=== PATIENT | male | born 1970 | race Hispanic/Latino ===

== ENCOUNTER 2016-04-20 09:09 | Emergency (ER) | payer OTHER ==
[2016-04-20 09:26] VITALS: BP 139/101
[2016-04-20 09:51] LABS: Basophils % (Auto) 1.1 % (0.0-1.8); Eosinophils % (Auto) 2.5 % (0.0-4.3); Hematocrit 44.9 % (35.5-45.6); Hemoglobin 15.1 gm/dl (11.8-15.2); Mean Corpuscular HGB Conc 34 % (32-34); Mean Corpuscular Hemoglobin 30 pg (28-32); Mean Corpuscular Volume 88 fl (84-94); Platelet Count 278 K/mm3 (140-440); Red Blood Count 5.09 M/mm3 (3.65-5.03); Red Cell Distribution Width 13.1 % (13.2-15.2); White Blood Count 5.8 K/mm3 (4.5-11.0)
[2016-04-20 10:02] LABS: Anion Gap 17 mmol/L; Blood Urea Nitrogen 7 mg/dL (9-20); Carbon Dioxide 29 mmol/L (22-30); Chloride 100.7 mmol/L (98-107); Glucose 100 mg/dL (75-100); Potassium 5.2 mmol/L (3.6-5.0); Sodium 141 mmol/L (137-145)
--- NOTE | 2016-04-21 00:19 | ED Elopement Review ---
ED Pt Elopement review - Results review Lab results: Laboratory Tests 04/20/16 04/20/16 04/20/16 09:42 09:42 13:34 WBC 5.8 RBC 5.09 H Hgb 15.1 Hct 44.9 MCV 88 MCH 30 MCHC 34 RDW 13.1 L Plt Count 278 Lymph % (Auto) 27.4 Henry % (Auto) 6.4 Eos % (Auto) 2.5 Baso % (Auto) 1.1 Lymph # 1.6 Henry # 0.4 Eos # 0.1 Baso # 0.1 Seg Neutrophils % 62.6 Seg Neutrophils # 3.6 Sodium 141 Potassium 5.2 H Chloride 100.7 Carbon Dioxide 29 Anion Gap 17 BUN 7 L Creatinine 1.0 Estimated GFR > 60 BUN/Creatinine Ratio 7.00 Glucose 100 Calcium 10.0 Troponin T < 0.010 < 0.010 04/20/16 15:25 WBC RBC Hgb Hct MCV MCH MCHC RDW Plt Count Lymph % (Auto) Henry % (Auto) Eos % (Auto) Baso % (Auto) Lymph # Henry # Eos # Baso # Seg Neutrophils % Seg Neutrophils # Sodium Potassium Chloride Carbon Dioxide Anion Gap BUN Creatinine Estimated GFR BUN/Creatinine Ratio Glucose Calcium Troponin T < 0.010 - Call Back decision Pt Call Back Decision: No action required
== END 2016-04-20 09:45 | disposition left against medical advice (07) ==
LOC: ED 09:09
DX: R07.89 Other chest pain (principal); Z53.21 Procedure and treatment not carried out due to patient leaving prior to being seen by health care provider
CPT/HCPCS: 36415; 80048; 84484; 85025; 93005; 93010

== ENCOUNTER 2016-04-20 19:28 | Inpatient (IN) | payer OTHER ==
--- NOTE | 2016-04-21 08:48 | Emergency Department Report ---
ED Chest Pain HPI - General Chief Complaint: Chest Pain Stated Complaint: CHEST PAIN, HIGH BLOOD PRESSURE Time Seen by Provider: 04/21/16 08:37 Source: patient Mode of arrival: Ambulatory Limitations: No Limitations - History of Present Illness Initial Comments: This is a 46-year-old male who presents to the emergency department with complaint of dizziness and left-sided chest pain that has been going on intermittently over the past 3 days. The patient has been in the emergency department since [place] yesterday, Wednesday, when he came by EMS from home. The dizziness worsened at that time and feels like he might pass out but he denies any vertigo-like symptoms. He also says that sometimes the pain will radiate down his left arm causing some paresthesia-like symptoms. He denies any history of IN, CVA, PE/DVT. He does have a history of hypertension, tobacco use and there is a family history of heart problems with his father having a heart attack at the age of 37 years of age. He has not taken anything for symptoms prior to presentation. He denies any illicit drug use or excessive alcohol use. No recent travel or sick contacts at home. 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 Severity scale (0 -10): 9 - Related Data Home Medications Medication Instructions Recorded Confirmed Last Taken Lansoprazole [Prevacid] 30 mg PO QDAY 04/21/16 04/21/16 Unknown Allergies Allergy/AdvReac Type Severity Reaction Status Date / Time No Known Allergies Allergy Verified 05/06/14 10:32 ELBA score - Elba Score Age > 65: (0) No Aspirin use within the Past 7 Days: (0) No 3 or more CAD Risk Factors: (1) Yes 2 or more Angina events in past 24 hrs: (1) Yes Known CAD with more than 50% Stenosis: (0) No Elevated Cardiac Markers: (0) No ST Deviation Greater than 0.5mm: (0) No ELBA Score: 2 ED Review of Systems ROS: Stated complaint: CHEST PAIN, HIGH BLOOD PRESSURE Other details as noted in HPI Comment: All other systems reviewed and negative Constitutional: denies: chills, fever Eyes: denies: eye pain, eye discharge, vision change ENT: denies: ear pain, throat pain Respiratory: denies: cough, shortness of breath, wheezing Cardiovascular: chest pain. denies: palpitations Gastrointestinal: denies: abdominal pain, nausea, diarrhea Genitourinary: denies: urgency, dysuria Musculoskeletal: denies: back pain, joint swelling, arthralgia Skin: denies: rash, lesions Neurological: headache, other (Dizzy). denies: weakness, paresthesias ED Past Medical Hx - Past Medical History Hx Hypertension: Yes (No medication) Hx Heart Attack/AMI: No Hx Congestive Heart Failure: No Hx Diabetes: No Hx GERD: Yes Hx Arthritis: Yes Hx Kidney Stones: Yes Hx Asthma: No Hx COPD: No - Surgical History Additional Surgical History: left eye surgery as a child - Social History Smoking Status: Current Every Day Smoker Substance Use Type: None - Medications Home Medications: Home Medications Medication Instructions Recorded Confirmed Last Taken Type Lansoprazole [Prevacid] 30 mg PO QDAY 04/21/16 04/21/16 Unknown History ED Physical Exam - General Limitations: No Limitations - Other Other exam information: GENERAL: The patient is well-developed well-nourished. HEENT: Normocephalic. Atraumatic. Extraocular motions are intact. Patient has moist mucous membranes. Pupils equal reactive to light bilaterally. NECK: Supple. Trachea is midline. CHEST/LUNGS: Clear to auscultation. There is no respiratory distress noted. Chest pain is not reproducible to palpation of chest wall. HEART/CARDIOVASCULAR: Regular. There is no tachycardia. There is no gallop rub or murmur. ABDOMEN: Abdomen is soft, nontender. Patient has normal bowel sounds. There is no abdominal distention. SKIN: There is no rash. There is no edema. There is no diaphoresis. NEURO: The patient is awake, alert, and oriented. The patient is cooperative. The patient has no focal neurologic deficits. The patient has normal speech. MUSCULOSKELETAL: There is no tenderness or deformity. There is no limitation range of motion. There is no evidence of acute injury. ED Course Vital Signs 04/20/16 04/21/16 04/21/16 20:45 06:21 08:34 Temperature 98.5 F 98.1 F Pulse Rate 80 78 Respiratory 18 20 Rate Blood Pressure 155/97 131/96 Blood Pressure [Right] O2 Sat by Pulse 100 100 100 Oximetry 04/21/16 04/21/16 04/21/16 08:40 08:43 08:50 Temperature Pulse Rate 75 85 69 Respiratory 16 11 L 18 Rate Blood Pressure Blood Pressure 131/86 [Right] O2 Sat by Pulse 99 99 99 Oximetry 04/21/16 04/21/16 04/21/16 09:00 09:10 09:20 Temperature Pulse Rate 66 64 62 Respiratory 17 15 15 Rate Blood Pressure 131/82 131/82 131/86 Blood Pressure [Right] O2 Sat by Pulse 98 97 98 Oximetry 04/21/16 04/21/16 04/21/16 09:30 09:40 09:50 Temperature Pulse Rate 60 59 L 61 Respiratory 12 12 12 Rate Blood Pressure 120/81 120/81 123/78 Blood Pressure [Right] O2 Sat by Pulse 97 98 98 Oximetry 04/21/16 04/21/16 04/21/16 10:00 10:10 10:20 Temperature Pulse Rate 65 Respiratory 11 L Rate Blood Pressure 128/85 128/85 110/60 Blood Pressure [Right] O2 Sat by Pulse 98 98 98 Oximetry 04/21/16 04/21/16 04/21/16 10:30 10:40 10:50 Temperature Pulse Rate Respiratory Rate Blood Pressure 126/80 126/80 119/79 Blood Pressure [Right] O2 Sat by Pulse 99 98 97 Oximetry 04/21/16 11:00 Temperature Pulse Rate Respiratory Rate Blood Pressure 114/83 Blood Pressure [Right] O2 Sat by Pulse 99 Oximetry ED Medical Decision Making - Lab Data Result diagrams: 04/21/16 09:00 - EKG Data -: EKG Interpreted by Me EKG shows normal: sinus rhythm, axis, intervals, QRS complexes, ST-T waves Rate: normal - EKG Data When compared to previous EKG there are: previous EKG unavailable Interpretation: normal EKG - Radiology Data Radiology results: image reviewed interpreted by me: Chest x-ray did not show any acute process. Heart is normal shape and size. No effusions. No pneumothorax. No signs of pneumonia seen. - Medical Decision Making 46-year-old male presents to the emergency department with complaint of some intermittent left-sided chest pain with some radiation down the left arm. He has the risk factors of hypertension, tobacco abuse, and family history. He has never had a stress test. Patient has 2 different encounters in the past 24 hours but has never left the emergency department and therefore has 2 different sets of labs and EKGs and imaging. So far the labs have been unremarkable but the patient continues to have discomfort. Vital signs stable throughout his ED course. Patient will be admitted to hospital for either a stress test or cardio consultation and has been accepted for admission by the hospitalist, Dr. Orosco. - Differential Diagnosis IN, costochondritis, pneumonia, CHF Critical Care Time: No Critical care attestation.: If time is entered above; I have spent that time in minutes in the direct care of this critically ill patient, excluding procedure time. ED Disposition Clinical Impression: Tobacco abuse Hypertension Qualifiers: Hypertension type: essential hypertension Qualified Code(s): I10 - Essential ( primary) hypertension Chest pain Qualifiers: Chest pain type: unspecified Qualified Code(s): R07.9 - Chest pain, unspecified Disposition: OP ADMITTED IP TO THIS HOSP Is pt being admited?: Yes Does the pt Need Aspirin: Yes Condition: Stable Instructions: Hypertension (ED), Chest Pain (ED) Referrals: PRIMARY CARE, [Primary Care Provider] - 3-5 Days Time of Disposition: 11:34
--- NOTE | 2016-04-21 08:56 | XRay Report ---
ROUTINE CHEST, TWO VIEWS: HISTORY: chest pain. The trachea, heart, mediastinal contour, lung cast and bony thorax are unremarkable. IMPRESSION: Unremarkable chest x-ray. No significant change since 05/06/14.
[2016-04-21 09:37] LABS: Anion Gap 17 mmol/L; Blood Urea Nitrogen 13 mg/dL (9-20); Calcium 9.5 mg/dL (8.4-10.2); Carbon Dioxide 27 mmol/L (22-30); Chloride 97.2 mmol/L (98-107); Glucose 101 mg/dL (75-100); Potassium 4.3 mmol/L (3.6-5.0); Sodium 137 mmol/L (137-145)
--- NOTE | 2016-04-21 09:51 | Admit Criteria Form ---
Admission Criteria Documentation: CHEST PAIN Clinical Indications for Admission to Inpatient Care (Place 'X' for any and all applicable criteria): Admission is indicated for chest pain and ANY ONE of the following(1)(2)(3)(4)(5 ): [ ]I. Angina with acute coronary syndrome (Also use Myocardial Infarction or Angina guideline) [ ]II. Hemodynamic instability [X]III. Angina needing acute intervention as indicated by ALL of the following( 11)(12): [X ]a) Unstable angina is present as indicated by angina that is ANY ONE of the following: [ ]i) New onset [ ]ii) Nocturnal [ ]iii) Prolonged at rest [X ]iv) Progressive [ X]b) Angina warrants acute intervention as indicated by ANY ONE of the following: [ ]i) Recurrent angina (e.g, not responding as previously to treatment) [ ]ii) Angina at rest or with low-level activities despite initial medical therapy [ ]iii) New or presumably new ST-segment depression on ECG [ ]iv) Signs or symptoms of heart failure (eg, dyspnea, pulmonary edema) [ ]v) New or worsening mitral regurgitation [ ]vi) Hemodynamic instability [ ]vii) Dangerous arrhythmia (eg, sustained ventricular tachycardia) [ ]viii) History of percutaneous coronary intervention within 6 months [ ]ix) History of coronary artery bypass graft surgery [X ]x) ELBA risk score of 2 or greater[A] [ ]xi) History of Diabetes(14) [ ]xii) High-risk cardiac ischemia findings on noninvasive testing (e.g, echocardiogram, treadmill testing, nuclear scan) [ ]xiii) Chronic renal insufficiency (ie, estimated GFR less than 60 mL/min/1.732m) [ ]xiv) Left ventricular ejection fraction less than 40% [ ]IV. Evidence of KS (eg, cardiac biomarkers positive, ST-segment elevation on ECG) also use Myocardial Infarction Criteria Form. [ ]V. Pulmonary edema [ ]. Respiratory distress [ ]VII. Chest pain indicative of serious diagnosis other than coronary artery disease (eg, aortic dissection) [ ]VIII. Contraindications and/or Inappropriate clinical situations for Observational Care in patients with Chest Pain, when ANY ONE of the following is required: [ ]a) Patient with risk factor for pulmonary embolism, acute coronary syndrome and myocardial infarction (18) [ ]b) Patient with Pulmonary embolism require an average LOS of 4.3 days, therefore emergency department observation management is inappropriate 18,23 [ ]c) Painful condition/s in the elderly, have the highest rate of recidivism after emergency department observation management (10.8%) 20,21,22 [ ]d) Elevated cardiac biomarker requires intensive and exhaustive care (19) [ ]IX. General contraindications and/or Inappropriate clinical situations for Observational Care in patients with Chest Pain, when ANY ONE of the following is required: [ ]a) Prediction of prolongation of LOS based on ANY ONE of the following may be considered as a contraindication for observational care 2, 3, 4, 5, 6, 7, 8, 9, 10, 11 [ ]i) Age > 65 yrs. [ ]ii) Patient arriving by ambulance [ ]iii) Patient with high acuity [ ]iv) Patient requiring vital sign monitoring [ ]v) Patient on IV medication [ ]b) Systolic blood pressures 180mmHg 3,12 [ ]c) Patient with altered mental status including delirium and other alteration of consciousness, (3) [ ]d) Patient whose discharge disposition will be to a [facility] home or rehabilitation home should not be managed in Emergency Department Observation Unit. CMS rule requires 3 days hospital stay before such placement. 3,13 [ ]e) Patient with failure to thrive due to broad array of etiologies 3,16,17 [ ]f) Inability to ambulate 3,14 Extended stay beyond goal length of stay may be needed for (1)(28): [ ]a) Specific condition diagnosed after evaluation (eg, pulmonary embolism, aortic dissection) [ ]b) Unstable angina [ ]c) Continued suspicion of acute coronary syndrome with inability to complete needed cardiac evaluation (eg, patient clinically unable to undergo stress testing) [ ]d) Myocardial infarction (Contents from ANGINA and CHEST PAIN clinical indications for admission to inpatient care have been integrated in this form) The original [employer] content created by [employer] has been revised. The portions of the content which have been revised are identified through the use of italic text or in bold, and [facility] [employer] has neither reviewed nor approved the modified material. All other unmodified content is copyright [employer]. Please see references footnoted in the original [facility] edition 2016 Admission Criteria Met: Yes
[2016-04-21] MEDS ORDERED: BABY ASPIRIN PO ONE (11:34)
[2016-04-21] MEDS: HEPARIN SUB-Q SCH ×2 (16:30→23:00)
[2016-04-22] MEDS ORDERED: SODIUM CHLORIDE FLUSH SYRINGE 10 ML IV PRN (02:24)
--- NOTE | 2016-04-22 02:24 | Event Note ---
Date: 04/21/16 See H/p in reports CP r/o VT
[2016-04-22] MEDS: DUONEB 0.5 MG-3 MG/3 ML SOLN IH SCH ×2 (03:14→07:32)
[2016-04-22 06:08] LABS: Creatine Kinase 60 units/L (55-170)
[2016-04-22 06:12] LABS: Creatine Kinase MB < 1.0 ng/mL (0.0-4.0)
[2016-04-22] MEDS: HEPARIN SUB-Q SCH (06:36)
[2016-04-22] MEDS ORDERED: LEXISCAN IV ONE ×2 (09:28→09:31)
--- NOTE | 2016-04-22 10:11 | History and Physical Report ---
CHIEF COMPLAINT: Chest pain for 3 days. HISTORY OF PRESENT ILLNESS: A 46-year-old male presents with left-sided chest pain a few days duration, intermittent in nature. Came to the Emergency Department on Wednesday morning. The patient had dizziness ____. Also, pain radiating down the left arm. Denies any history of KS, CVA, or PE. Has history of hypertension and tobacco use. No illicit drug use. CURRENT MEDICATIONS: Prilosec 30 mg p.o. daily. ALLERGIES: No known allergies. ELBA score is 2, one is two or more angina events in the past 24 hours and the 3 or more coronary artery disease risk factors in the form of ____ hypertension and obesity. PAST MEDICAL HISTORY: As mentioned, hypertension, not taking any medications, arthritis, kidney stones. PAST SURGICAL HISTORY: Left eye surgery as a child. SOCIAL HISTORY: Pack-a-day smoker. No alcohol, no recreational drugs. FAMILY HISTORY: No hypertension. CURRENT MEDICATIONS: Prevacid 30 mg daily. REVIEW OF SYSTEMS: CONSTITUTIONAL: No fever, no chills, no weight loss, no weight gain. HEENT: No sore throat. No postnasal drip. CARDIOVASCULAR AND RESPIRATORY: As mentioned intermittent chest pain for the last 3 days. No shortness of breath, no palpitations, no diaphoresis, no cough productive of yellow sputum. GASTROINTESTINAL: No nausea, no vomiting, no diarrhea. GENITOURINARY: No dysuria, no flank pain. MUSCULOSKELETAL SYSTEM: No joint pains, no muscle pains. CENTRAL NERVOUS SYSTEM: No syncope, no seizures. SKIN: No rashes. HEMATOLOGIC AND LYMPHATIC: No bruising, no lymphadenopathy. PSYCHIATRIC: No depression. No suicidal or homicidal ideations. A 14-point review of systems done. PHYSICAL EXAMINATION: GENERAL: Middle aged male, quite obese, cooperative during examination. VITAL SIGNS: Blood pressure is 155/97, has improved to 131/86, temperature is 98, heart rate 62, respiratory rate is 15. HEENT: Unremarkable. Pupils equal and reactive. NECK: Supple, no lymphadenopathy, no thyromegaly. LUNGS AND CHEST: Clear to auscultation and percussion. Good air entry. CARDIOVASCULAR: S1, S2 heard. No gallop, no murmur, no rub. Apical impulse in the left fifth intercostal space and midclavicular line. ABDOMEN: Soft and benign. No hepatosplenomegaly. No guarding, no rigidity. Hernial orifices are normal. EXTREMITIES: Good pedal pulses. No pedal edema. CENTRAL NERVOUS SYSTEM: Alert and oriented x2, nonfocal exam. LABORATORY DATA: EKG, sinus rhythm with normal ____. Normal ST-T waves. Normal EKG. Chest x-ray, no acute changes. Labs have been normal. Glucose is 101. Troponin is less than 0.010. ASSESSMENT AND PLAN: 1. Chest pain, rule out myocardial infarction, chest pain protocol. Lexiscan in the morning. Serial cardiac enzymes. Differential diagnosis of acute coronary syndrome versus gastroesophageal reflux disease versus costochondritis. 2. Hypertension, the patient is not on any medications. We will get further blood pressures and if necessary start him on antihypertensives. 3. Gastroesophageal reflux disease. Continue Prilosec 30 mg daily or already if equivalent. 4. Deep venous thrombosis prophylaxis, Lovenox 40 mg subcutaneous daily. [facility]# [id number] ELISABET/NTS
--- NOTE | 2016-04-22 10:43 | Discharge Summary ---
Providers - Providers Date of Admission: 04/21/16 11:34 Date of discharge: 04/22/16 Attending physician: KEKE MESSINA 04/22/16 Consult to Cardiac Rehabilitation [CONS] Routine Reason For Exam: Phase I Primary care physician: MARKETING PROJECT COORDINATOR Hospitalization Condition: Good Hospital course: Patient is 46 yo with hypertension, GERD. He presented with chest pain. he was given Aspirin and admitted to rule out acute coronary syndrome. He was on Prevacid and this was continued. Stress test done the next day and was negative. Chest pain due to GERD. He was discharged hoe on Pepcid to add to Prevacid. Disposition: DISCHARGED TO HOME OR SELFCARE - Discharge Diagnoses (1) Chest pain Status: Acute Qualifiers: Chest pain type: chest pain on breathing Qualified Code(s): R07.1 - Chest pain on breathing Comment: due to GERD (2) GERD (gastroesophageal reflux disease) Status: Chronic Qualifiers: Esophagitis presence: without esophagitis Qualified Code(s): K21.9 - Gastro -esophageal reflux disease without esophagitis (3) Hypertension Status: Chronic Qualifiers: Hypertension type: H Core Measure Documentation - Palliative Care Palliative Care/ Comfort Measures: Not Applicable - Core Measures Any of the following diagnoses?: none Exam - Constitutional Vitals: Temp Pulse Resp BP Pulse Ox 97.6 F 72 18 109/60 97 04/22/16 00:25 04/22/16 07:38 04/22/16 07:38 04/22/16 04:35 04/22/16 09:11 General appearance: Present: no acute distress - Neck Neck: Present: supple - Respiratory Respiratory: bilateral: CTA - Cardiovascular Rhythm: regular Heart Sounds: Present: S1 & S2 - Abdominal General gastrointestinal: Present: soft - Neurologic Neurologic: moves all extremities Plan Activity: no restrictions Diet: low salt Additional Instructions: 1.Follow up with PCP in 1 week Follow up with: PRIMARY CAREMD [Primary Care Provider] - 3-5 Days Prescriptions: Famotidine [Pepcid] 20 mg PO BID #60 tablet
--- NOTE | 2016-04-22 12:07 | Treadmill Report ---
NUCLEAR STUDY REASON FOR STUDY: Chest pain. IMAGING PROTOCOL: The patient received 10 mCi of Technetium 99m Tetrofosmin for resting image and 28 mCi of Technetium 99m Tetrofosmin for stress imaging. The imaging for the whole procedure was completed 30-90 minutes following the initial injection of Technetium 99m tetrofosmin. The SPECT imaging in the 180 degree arc was performed in the right anterior oblique projection. Computerized reconstruction of the images was performed for analysis. IMAGING RESULTS: Normal cavity size from stress to rest. Normal distribution of radionuclide in the anterior, inferior, septal, and apical regions. Gated SPECT, EF greater than 65%. No wall motion abnormality. The patient infused Lexiscan with no EKG changes. SUMMARY: 1. Negative Lexiscan EKG. 2. Normal rest and stress myocardial perfusion scan. No significant stress ischemia. No wall motion abnormality. Gated SPECT, EF greater than 65%. JOB# [id number] LOKI/NATALIE
[2016-04-22 12:43] VITALS: BP 130/88
[2016-04-22] MEDS ORDERED: DUONEB 0.5 MG-3 MG/3 ML SOLN IH SCH (14:00)
--- NOTE | 2016-04-27 09:53 | Query- Chest Pain ---
Abbey French Date:_04/27/16 Needle Punch Operator/CDS:Juan/Facundo Sarabia Phone#:_[phone] Exercise your independent professional judgment when responding to query. Questions asked do not imply a particular answer is desired or expected. We greatly appreciate your clarification on this issue. Clinical Documentation States: 46 Y/O male admitted on 04/21/16 with history of HTN not on any medication, Kidney stones, GERD and arthritis presents with 3 day history of chest pain. Clinical Findings Show: No EKG changes with stress test, EF greater than 65% Please document the etiology of Chest Pain: [ ] Myocardial Infarction [ ] Pneumonia [ ] Mediastinitis [ ] Costochondritis [ ] Pulmonary Embolism [ ] Coronary Artery Disease [x ] GERD [ ] Other: [ ] Comment/Explanation: Present on Admission: [x ] Yes (Y) [ ] Clinically undeterminable (W) [ ] No(N) Please document response in your Progress Notes and/or Discharge Summary and indicate if the condition was present on admission. ROBERTD
== END 2016-04-22 13:47 | disposition home or self-care (01) | DRG 392 ==
LOC: ED 19:28 → 4A 04-21 11:34
PROVIDERS: ADMIT Internal Medicine; ATTEND Internal Medicine
DX: K21.9 Gastro-esophageal reflux disease without esophagitis (principal); I10 Essential (primary) hypertension; M19.90 Unspecified osteoarthritis, unspecified site; F17.200 Nicotine dependence, unspecified, uncomplicated; Z87.442 Personal history of urinary calculi
CPT/HCPCS: 36415; 71020; 78452; 80048; 82550; 82553; 84484; 93005; 93010; 93017; 94640; A9502; J1644; J2785

== ENCOUNTER 2018-08-19 09:04 | Emergency (ER) | payer OTHER ==
[2018-08-19] MEDS ORDERED: ASPIRIN PO ONE (09:25)
--- NOTE | 2018-08-19 10:05 | XRay Report ---
CHEST ONE VIEW INDICATION: Chest pain. COMPARISON: 04/21/2016. FINDINGS: Portable, single, frontal chest radiograph again demonstrates normal cardiomediastinal silhouette. Clear lungs. Unremarkable bones. CONCLUSION: No acute disease in the chest. Thank you for the opportunity to participate in this patient's care.
[2018-08-19 10:27] LABS: Basophils # (Auto) 0.1 K/mm3 (0.0-0.1); Basophils % (Auto) 0.9 % (0.0-1.8); Eosinophils # (Auto) 0.2 K/mm3 (0.0-0.4); Eosinophils % (Auto) 2.9 % (0.0-4.3); Hematocrit 45.6 % (35.5-45.6); Hemoglobin 15.7 gm/dl (11.8-15.2); Lymphocytes # (Auto) 1.4 K/mm3 (1.2-5.4); Lymphocytes % (Auto) 21.8 % (13.4-35.0); Mean Corpuscular HGB Conc 35 % (32-34); Mean Corpuscular Volume 92 fl (84-94); Monocytes # (Auto) 0.4 K/mm3 (0.0-0.8); Monocytes % (Auto) 6.2 % (0.0-7.3); Platelet Count 287 K/mm3 (140-440); Red Blood Count 4.98 M/mm3 (3.65-5.03); Red Cell Distribution Width 14.1 % (13.2-15.2)
[2018-08-19 10:49] LABS: BUN/Creatinine Ratio 14; Blood Urea Nitrogen 13 mg/dL (9-20); Calcium 9.3 mg/dL (8.4-10.2); Hemolysis Index 23
--- NOTE | 2018-08-19 12:03 | Emergency Department Report ---
ED Chest Pain HPI - General Chief Complaint: Chest Pain Stated Complaint: CHEST PAIN Time Seen by Provider: 08/19/18 11:45 Source: patient Mode of arrival: Ambulatory Limitations: No Limitations - History of Present Illness Initial Comments: 48-year-old male with no know past medical history presents to the ED with complaint of chest pain 2-3 days. Patient states pain has been constant, stabbing in nature. Patient reports associated numbness and tingling in left arm and mild shortness of breath. Reports cough, no fever. Denies leg pain or swelling, nausea or vomiting. Patient reports tobacco use, daily EtOH use in excess of 12 beers a day, denies drug use. MD Complaint: chest pain -: days(s) (3) Onset: during rest Pain Location: substernal Pain Radiation: none Severity: moderate Quality: sharp Consistency: constant Improves With: nothing Worsens With: nothing re: diaphoresis, dyspnea. denies: nausea, vomting Other Symptoms: cough. denies: fever, leg swelling Treatments Prior to Arrival: none - Related Data Home Medications Medication Instructions Recorded Confirmed Last Taken Lansoprazole [Prevacid] 30 mg PO QDAY 04/21/16 04/21/16 Unknown Previous Rx's Medication Instructions Recorded Last Taken Type Famotidine [Pepcid] 20 mg PO BID #60 tablet 04/22/16 Unknown Rx Allergies Allergy/AdvReac Type Severity Reaction Status Date / Time No Known Allergies Allergy Verified 08/19/18 09:06 Heart Score - HEART Score History: Slightly suspicious EKG: Normal Age: 45-65 Risk factors: 1-2 risk factors Troponin: < normal limit HEART Score: 2 ED Review of Systems ROS: Stated complaint: CHEST PAIN Other details as noted in HPI Comment: All other systems reviewed and negative Constitutional: denies: chills, fever Respiratory: cough, shortness of breath Cardiovascular: chest pain Gastrointestinal: diarrhea. denies: nausea, vomiting Musculoskeletal: other (denies leg pain and swelling) ED Past Medical Hx - Past Medical History Hx Hypertension: Yes (No medication) Hx Heart Attack/AMI: No Hx Congestive Heart Failure: No Hx Diabetes: No Hx GERD: Yes Hx Arthritis: Yes Hx Kidney Stones: Yes Hx Asthma: No Hx COPD: No - Surgical History Additional Surgical History: left eye surgery as a child - Social History Smoking Status: Current Every Day Smoker Substance Use Type: Alcohol - Medications Home Medications: Home Medications Medication Instructions Recorded Confirmed Last Taken Type Lansoprazole [Prevacid] 30 mg PO QDAY 04/21/16 04/21/16 Unknown History Famotidine [Pepcid] 20 mg PO BID #60 tablet 04/22/16 Unknown Rx ED Physical Exam - General Limitations: No Limitations General appearance: alert, in no apparent distress - Head Head exam: Present: atraumatic, normocephalic - Eye Eye exam: Present: normal appearance, PERRL, EOMI - ENT ENT exam: Present: mucous membranes moist - Neck Neck exam: Present: normal inspection - Respiratory Respiratory exam: Present: normal lung sounds bilaterally. Absent: respiratory distress - Cardiovascular Cardiovascular Exam: Present: normal rhythm, tachycardia - GI/Abdominal GI/Abdominal exam: Present: soft. Absent: distended, tenderness - Extremities Exam Extremities exam: Present: normal inspection. Absent: pedal edema, calf tende rness - Neurological Exam Neurological exam: Present: alert, oriented X3, CN II-XII intact. Absent: motor sensory deficit - Psychiatric Psychiatric exam: Present: normal affect, normal mood - Skin Skin exam: Present: warm, dry, intact, normal color. Absent: rash ED Course Vital Signs 08/19/18 08/19/18 08/19/18 09:23 11:36 12:07 Temperature 98.0 F Pulse Rate 101 H 72 Respiratory 17 20 18 Rate Blood Pressure 147/95 136/91 O2 Sat by Pulse 97 100 98 Oximetry 08/19/18 08/19/18 08/19/18 12:16 13:00 13:15 Temperature Pulse Rate 100 H Respiratory 23 Rate Blood Pressure 136/91 153/82 136/91 O2 Sat by Pulse 98 98 99 Oximetry 08/19/18 08/19/18 13:30 13:35 Temperature 98.9 F Pulse Rate Respiratory Rate Blood Pressure 153/81 O2 Sat by Pulse 95 Oximetry ELBA score - Elba Score Age > 65: (0) No Aspirin use within the Past 7 Days: (0) No 3 or more CAD Risk Factors: (1) Yes 2 or more Angina events in past 24 hrs: (1) Yes Known CAD with more than 50% Stenosis: (0) No Elevated Cardiac Markers: (0) No ST Deviation Greater than 0.5mm: (0) No ELBA Score: 2 ED Medical Decision Making - Lab Data Result diagrams: 08/19/18 09:50 08/19/18 09:50 - EKG Data -: EKG Interpreted by Me EKG shows normal: sinus rhythm, axis, intervals, QRS complexes, ST-T waves Rate: normal - EKG Data Interpretation: no acute changes - Radiology Data Radiology results: report reviewed, image reviewed - Medical Decision Making - EKG unremarkable, no ST changes - troponin negative x 2 - D-dimer normal - lipase normal - CXR unremarkable - neg stress test Apr 2016 - advised outpt follow-up - return precautions given - Differential Diagnosis ACS, PE, chest wall pain Critical care attestation.: If time is entered above; I have spent that time in minutes in the direct care of this critically ill patient, excluding procedure time. ED Disposition Clinical Impression: Chest pain Disposition: - TO HOME OR SELFCARE Is pt being admited?: No Condition: Stable Instructions: Chest Pain (ED) Referrals: [facility] [Provider Group] - 3-5 Days MATI AMANDA MD [Staff Physician] - 3-5 Days Time of Disposition: 13:23
[2018-08-19 12:32] LABS: Alanine Aminotransferase 71 units/L (7-56); Albumin 4.5 g/dL (3.9-5)
[2018-08-19 12:34] LABS: Bilirubin,Direct < 0.2 mg/dL (0-0.2)
[2018-08-19 13:35] VITALS: BP 153/81
== END 2018-08-19 13:44 | disposition home or self-care (01) ==
LOC: ED 09:04
DX: R07.89 Other chest pain (principal); R20.2 Paresthesia of skin; I10 Essential (primary) hypertension; K21.9 Gastro-esophageal reflux disease without esophagitis; M19.90 Unspecified osteoarthritis, unspecified site; F17.200 Nicotine dependence, unspecified, uncomplicated; Z79.899 Other long term (current) drug therapy
CPT/HCPCS: 36415; 71045; 80048; 80076; 83690; 84484; 85025; 85379; 93005; 93010

== ENCOUNTER 2019-11-26 09:36 | Emergency (ER) | payer SELFPAY ==
[2019-11-26 09:42] VITALS: BP 155/86
--- NOTE | 2019-11-26 09:58 | Emergency Department Report ---
Suture/Staple Removal - [facility] Chief Complaint: Laceration/Recheck/Suture Stated Complaint: STICHES REMOVAL Time Seen by Provider: 11/26/19 09:49 Wound Location: left arm ED Review of Systems ROS: Stated complaint: STICHES REMOVAL Other details as noted in HPI Constitutional: denies: chills, fever Eyes: denies: eye pain, eye discharge, vision change ENT: denies: ear pain, throat pain Respiratory: denies: cough, shortness of breath, wheezing Cardiovascular: denies: chest pain, palpitations Endocrine: no symptoms reported Gastrointestinal: denies: abdominal pain, nausea, diarrhea Genitourinary: denies: urgency, dysuria Musculoskeletal: denies: back pain, joint swelling, arthralgia Skin: denies: rash, lesions Neurological: denies: headache, weakness, paresthesias Psychiatric: denies: anxiety, depression Hematological/Lymphatic: denies: easy bleeding, easy bruising ED Past Medical Hx - Past Medical History Hx Hypertension: Yes (No medication) Hx Heart Attack/AMI: No Hx Congestive Heart Failure: No Hx Diabetes: No Hx GERD: Yes Hx Arthritis: No Hx Kidney Stones: Yes Hx Asthma: No Hx COPD: No - Surgical History Additional Surgical History: left eye surgery as a child - Social History Smoking Status: Current Every Day Smoker Substance Use Type: None - Medications Home Medications: Home Medications Medication Instructions Recorded Confirmed Last Taken Type Lansoprazole [Prevacid] 30 mg PO QDAY 04/21/16 04/21/16 Unknown History Famotidine [Pepcid] 20 mg PO BID #60 tablet 04/22/16 Unknown Rx Suture Removal Exam - Exam General: Vital signs noted. No distress. Alert and acting appropriately. Wound: No Pathologic Erythema, No Tenderness, No Drainage, No Pus, No Wound Dehiscence Other Systems: All other systems reviewed and are unremarkable. ED Course Vital Signs 11/26/19 09:38 Temperature 98.8 F Pulse Rate 83 Respiratory 18 Rate Blood Pressure 155/86 O2 Sat by Pulse 96 Oximetry - Reevaluation(s) Reevaluation #1: 11/26/19 09:56 Patient is speaking in full sentences with no signs of distress noted. ED Recheck MDM - Medical Decision Making 49-year-old male that presents with suture removal. Patient is stable and was examined by me. Sutures has been placed in [facility]. Patient stated he is unsure how many stitches has been placed or if there is any deeper dermis sutures. Exam is unremarkable, there is no cellulitis and well-healing. Due to the nature of not knowing how many sutures are placed ordered the procedure notes with procedure being done in another facility patient was referred to see a primary care doctor or return to [facility] for suture removal. Patient was also instructed to follow-up with a primary care doctor in 3-5 days or if symptoms worsen and continue return to emergency room as soon as possible. At time of discharge, the patient does not seem toxic or ill in appearance. No acute signs of distress noted. Patient agrees to discharge treatment plan of care. No further questions noted by the patient. Critical care attestation.: If time is entered above; I have spent that time in minutes in the direct care of this critically ill patient, excluding procedure time. ED Disposition Clinical Impression: Encounter for removal of sutures Disposition: [facility] SCREENING EXAM-LEFT Is pt being admited?: No Does the pt Need Aspirin: No Condition: Stable Instructions: Suture Removal (ED) Additional Instructions: Follow-up with a primary care doctor or return to [facility] for suture removal RUFINO or if symptoms worsen and continue return to emergency room as soon as possible. Referrals: DALE FRENCH MD [Staff Physician] - RUFINO PRIMARY MD JIM [Referring] - RUFINO
== END 2019-11-26 10:14 | disposition left against medical advice (07) ==
LOC: ED 09:36
DX: Z53.21 Procedure and treatment not carried out due to patient leaving prior to being seen by health care provider (principal)

== ENCOUNTER 2020-03-24 16:08 | Emergency (ER) | payer SELFPAY ==
[2020-03-24 16:36] VITALS: BP 125/88
--- NOTE | 2020-03-24 16:48 | Emergency Department Report ---
ED Chest Pain HPI - General Chief Complaint: Chest Pain Stated Complaint: CHEST PAIN Time Seen by Provider: 03/24/20 16:46 Source: patient Mode of arrival: Ambulatory Limitations: No Limitations - History of Present Illness Initial Comments: 50-year-old male presents to the emergency room stating he has left chest pain and arm pain for 2 days. Patient is taking nothing for his discomfort. Patient reports he has some shortness of breath and has had diarrhea. Patient last Covid test was last month and negative. Patient states he smokes 2 packs/day and is homeless. Patient denies any recent injury. MD Complaint: chest pain Onset/Timin -: days(s) Onset: during rest Pain Location: left chest Pain Radiation: LUE Severity scale (0 -10): 2 Quality: sharp Consistency: intermittent Improves With: nothing Worsens With: nothing re: denies: nausea, vomting, diaphoresis, dyspnea, sense of impending doom Treatments Prior to Arrival: none Aspirin use within the Past 7 Days: (0) No - Related Data Home Medications Medication Instructions Recorded Confirmed Last Taken Lansoprazole [Prevacid] 30 mg PO QDAY 04/21/16 04/21/16 Unknown Previous Rx's Medication Instructions Recorded Last Taken Type Famotidine [Pepcid] 20 mg PO BID #60 tablet 04/22/16 Unknown Rx Allergies Allergy/AdvReac Type Severity Reaction Status Date / Time No Known Allergies Allergy Verified 11/26/19 09:38 Heart Score - HEART Score History: Slightly suspicious EKG: Normal Age: 45-65 Risk factors: 1-2 risk factors Troponin: < normal limit HEART Score: 2 ED Review of Systems ROS: Stated complaint: CHEST PAIN Other details as noted in HPI Comment: All other systems reviewed and negative ED Past Medical Hx - Past Medical History Previous Medical History?: Yes Hx Hypertension: Yes (No medication) Hx Heart Attack/AMI: No Hx Congestive Heart Failure: No Hx Diabetes: No Hx GERD: Yes Hx Arthritis: No Hx Kidney Stones: Yes Hx Asthma: No Hx COPD: No - Surgical History Past Surgical History?: Yes Additional Surgical History: left eye surgery as a child - Social History Smoking Status: Current Every Day Smoker Substance Use Type: Alcohol - Medications Home Medications: Home Medications Medication Instructions Recorded Confirmed Last Taken Type Lansoprazole [Prevacid] 30 mg PO QDAY 04/21/16 04/21/16 Unknown History Famotidine [Pepcid] 20 mg PO BID #60 tablet 04/22/16 Unknown Rx ED Physical Exam - General Limitations: No Limitations General appearance: alert, in no apparent distress - Head Head exam: Present: atraumatic, normocephalic - Eye Eye exam: Present: normal appearance - ENT ENT exam: Present: mucous membranes moist - Neck Neck exam: Present: normal inspection - Respiratory Respiratory exam: Present: normal lung sounds bilaterally. Absent: respiratory distress - Cardiovascular Cardiovascular Exam: Present: regular rate, normal rhythm. Absent: systolic murmur, diastolic murmur, rubs, gallop - GI/Abdominal GI/Abdominal exam: Present: soft, normal bowel sounds - Rectal Rectal exam: Present: deferred - Extremities Exam Extremities exam: Present: normal inspection - Back Exam Back exam: Present: normal inspection - Neurological Exam Neurological exam: Present: alert, oriented X3 - Psychiatric Psychiatric exam: Present: normal affect, normal mood - Skin Skin exam: Present: warm, dry, intact, normal color. Absent: rash ED Course Vital Signs 03/24/20 16:33 Temperature 98.7 F Pulse Rate 105 H Respiratory 20 Rate Blood Pressure 125/88 O2 Sat by Pulse 100 Oximetry STEVE score - Steve Score Age > 65: (0) No Aspirin use within the Past 7 Days: (0) No 3 or more CAD Risk Factors: (1) Yes 2 or more Angina events in past 24 hrs: (1) Yes Known CAD with more than 50% Stenosis: (0) No Elevated Cardiac Markers: (0) No ST Deviation Greater than 0.5mm: (0) No STEVE Score: 2 ED Medical Decision Making - Lab Data Result diagrams: 03/24/20 17:24 03/24/20 17:24 Lab Results 03/24/20 03/24/20 03/24/20 Range/Units 17:24 17:24 19:22 WBC 7.7 (4.5-11.0) K/mm3 RBC 5.07 H (3.65-5.03) M/mm3 Hgb 15.9 H (11.8-15.2) gm/dl Hct 47.3 H (35.5-45.6) % MCV 93 (84-94) fl MCH 31 (28-32) pg MCHC 34 (32-34) % RDW 14.2 (13.2-15.2) % Plt Count 248 (140-440) K/mm3 Lymph % (Auto) 28.3 (13.4-35.0) % [place] % (Auto) 7.3 (0.0-7.3) % Eos % (Auto) 2.6 (0.0-4.3) % Baso % (Auto) 0.9 (0.0-1.8) % Lymph # (Auto) 2.2 (1.2-5.4) K/mm3 [place] # (Auto) 0.6 (0.0-0.8) K/mm3 Eos # (Auto) 0.2 (0.0-0.4) K/mm3 Baso # (Auto) 0.1 (0.0-0.1) K/mm3 Seg Neutrophils % 60.9 (40.0-70.0) % Seg Neutrophils # 4.7 (1.8-7.7) K/mm3 Sodium 140 (137-145) mmol/L Potassium 4.1 (3.6-5.0) mmol/L Chloride 101.6 (98-107) mmol/L Carbon Dioxide 26 (22-30) mmol/L Anion Gap 17 mmol/L BUN 9 (9-20) mg/dL Creatinine 0.7 L (0.8-1.3) mg/dL Estimated GFR > 60 ml/min BUN/Creatinine Ratio 13 % Glucose 93 (75-100) mg/dL Calcium 9.1 (8.4-10.2) mg/dL Total Bilirubin 0.20 (0.1-1.2) mg/dL AST 19 (5-40) units/L ALT 21 (7-56) units/L Alkaline Phosphatase 49 (35-129) units/L Troponin T < 0.010 < 0.010 (0.00-0.029) ng/mL Total Protein 5.9 L (6.3-8.2) g/dL Albumin 4.0 (3.9-5) g/dL Albumin/Globulin Ratio 2.1 % // Range/Units 20:01 WBC (4.5-11.0) K/mm3 RBC (3.65-5.03) M/mm3 Hgb (11.8-15.2) gm/dl Hct (35.5-45.6) % MCV (84-94) fl MCH (28-32) pg MCHC (32-34) % RDW (13.2-15.2) % Plt Count (140-440) K/mm3 Lymph % (Auto) (13.4-35.0) % [place] % (Auto) (0.0-7.3) % Eos % (Auto) (0.0-4.3) % Baso % (Auto) (0.0-1.8) % Lymph # (Auto) (1.2-5.4) K/mm3 [place] # (Auto) (0.0-0.8) K/mm3 Eos # (Auto) (0.0-0.4) K/mm3 Baso # (Auto) (0.0-0.1) K/mm3 Seg Neutrophils % (40.0-70.0) % Seg Neutrophils # (1.8-7.7) K/mm3 Sodium (137-145) mmol/L Potassium (3.6-5.0) mmol/L Chloride (98-107) mmol/L Carbon Dioxide (22-30) mmol/L Anion Gap mmol/L BUN (9-20) mg/dL Creatinine (0.8-1.3) mg/dL Estimated GFR ml/min BUN/Creatinine Ratio % Glucose (75-100) mg/dL Calcium (8.4-10.2) mg/dL Total Bilirubin (0.1-1.2) mg/dL AST (5-40) units/L ALT (7-56) units/L Alkaline Phosphatase (35-129) units/L Troponin T < 0.010 (0.00-0.029) ng/mL Total Protein (6.3-8.2) g/dL Albumin (3.9-5) g/dL Albumin/Globulin Ratio % - Radiology Data Radiology results: report reviewed Referring Physician:JAE SRIVASTAVAPatient Name:VALERIO ALONZOPatient ID:[id number] of :[id number]:MaleAccession:[id number] Date:[id number] Status:[place] [address] XRay Report Signed Patient: VALERIO ALONZO MR#: [id number] : 1970 Acct:[id number] Age/Sex: 50 / M ADM Date: 03/24/20 Loc: ED Attending Dr: Ordering Physician: MARCUS REYES Date of Service: 03/24/20 Procedure(s): XR chest routine 2V Accession Number(s): [id number] cc: MARCUS REYES Fluoro Time In Minutes: CHEST PA AND LATERAL VIEWS INDICATION: Chest Pain. COMPARISON: 08/19/2018. FINDINGS: Support devices: None. Heart: Within normal limits. Lungs/Pleura: No acute pulmonary or pleural findings. IMPRESSION: 1. No acute findings. Signer Name: Jose Wiley MD Signed: 03/24/2020 5:45 PM Workstation Name: [id number] Transcribed By: LORRIE Dictated By: Jose Wiley MD Electronically Authenticated By: Jose Wiley MD Signed Date/Time: 03/24/201744 DD/ 44 TD/TT: - Medical Decision Making 50-year-old male presents to the emergency room stating he has left chest pain and arm pain for 2 days. Patient is taking nothing for his discomfort. Patient reports he has some shortness of breath and has had diarrhea. Patient last Covid test was last month and negative. Patient states he smokes 2 packs/day and is homeless. Patient denies any recent injury. Chest x-ray is negative, EKG within normal limits labs are stable and nonactionable. Patient will be discharged home and to follow-up with a pelt shearer. Encourage patient to stop smoking. Increase his water intake. Critical care attestation.: If time is entered above; I have spent that time in minutes in the direct care of this critically ill patient, excluding procedure time. ED Disposition Clinical Impression: Chest pain, Tobacco abuse counseling, Homeless single person Disposition: - TO HOME OR SELFCARE Is pt being admited?: No Does the pt Need Aspirin: No Condition: Stable Instructions: Chest Pain (ED), Nonspecific Chest Pain, Adult, [id number], Steps to Quit Smoking, [id number] Additional Instructions: X-ray labs are all negative for any acute concerns. I recommend to discontinue smoking. Increase your water intake follow-up with a pelt shearer. Return back to the emergency room if any worsening chest pain. Take an aspirin daily. Referrals: PRIMARY CARE, [Primary Care Provider] - 3-5 Days [facility] [Provider Group] - 3-5 Days [facility] [Provider Group] - 3-5 Days
[2020-03-24 17:39] LABS: Basophils # (Auto) 0.1 K/mm3 (0.0-0.1); Basophils % (Auto) 0.9 % (0.0-1.8); Eosinophils # (Auto) 0.2 K/mm3 (0.0-0.4); Eosinophils % (Auto) 2.6 % (0.0-4.3); Hematocrit 47.3 % (35.5-45.6); Hemoglobin 15.9 gm/dl (11.8-15.2); Lymphocytes # (Auto) 2.2 K/mm3 (1.2-5.4); Lymphocytes % (Auto) 28.3 % (13.4-35.0); Mean Corpuscular HGB Conc 34 % (32-34); Mean Corpuscular Volume 93 fl (84-94); Monocytes # (Auto) 0.6 K/mm3 (0.0-0.8); Monocytes % (Auto) 7.3 % (0.0-7.3); Platelet Count 248 K/mm3 (140-440); Red Blood Count 5.07 M/mm3 (3.65-5.03); Red Cell Distribution Width 14.2 % (13.2-15.2)
--- NOTE | 2020-03-24 17:50 | XRay Report ---
CHEST PA AND LATERAL VIEWS INDICATION: Chest Pain. COMPARISON: 08/19/2018. FINDINGS: Support devices: None. Heart: Within normal limits. Lungs/Pleura: No acute pulmonary or pleural findings. IMPRESSION: 1. No acute findings. Signer Name: Jose Wiley MD Signed: 03/24/2020 5:45 PM Workstation Name: [id number]
[2020-03-24 18:02] LABS: Alanine Aminotransferase 21 units/L (7-56); Blood Urea Nitrogen 9 mg/dL (9-20); Calcium 9.1 mg/dL (8.4-10.2); Hemolysis Index 20
[2020-03-24 18:04] LABS: BUN/Creatinine Ratio 13
== END 2020-03-24 21:33 | disposition home or self-care (01) ==
LOC: ED 16:08
DX: R07.9 Chest pain, unspecified (principal); I10 Essential (primary) hypertension; K21.9 Gastro-esophageal reflux disease without esophagitis; F17.200 Nicotine dependence, unspecified, uncomplicated; Z87.442 Personal history of urinary calculi; Z79.899 Other long term (current) drug therapy; Z98.890 Other specified postprocedural states; Z59.0 Homelessness; Z71.6 Tobacco abuse counseling
CPT/HCPCS: 36415; 71046; 80053; 84484; 85025; 93005